=== PATIENT | female | born 1930 | race Caucasian/White ===

== ENCOUNTER 2017-12-02 13:29 | Emergency (ER) | payer MEDICARE, OTHER ==
--- NOTE | 2017-12-02 15:31 | CR ---
Lumbar spine: AP, lateral and cone down lateral views centered to the lumbosacral junction were obtained. Comparison: Prior MRI lumbar spine study of 11/27/10. Scoliosis is noted within the spine. Prior vertebroplasties are seen within L2 and L3. Severe disc space narrowing is noted at L5-S1. Mild spondylolisthesis is noted at L4-L5. Minimal compression deformities are seen within T11 and T12. Age of these are indeterminate. Scoliosis is present. Prominent lateral osteophytes are seen to the right side at L3-L4. Moderate disc space narrowing is noted at L3-L4. Impression: 1. Mild compression deformities involving T11 and T12, age is indeterminate. 2. Compression deformities of L2 and L3 with vertebroplasties. 3. Degenerative change as noted above and osteopenia. Diagnostic code #3
--- NOTE | 2017-12-02 15:33 | CR ---
Pelvis: AP view of the pelvis was obtained. Comparison: No prior pelvis exam. Mild joint space narrowing is noted within both hips. Mild degenerative change is noted within both sacroiliac joints. Bony structures are osteopenic. No acute fracture or other bony abnormality is seen. Impression: 1. Mild degenerative change and osteopenia. 2. Nothing acute is appreciated. Diagnostic code #2
--- NOTE | 2017-12-02 15:38 | EDM.PDOC ---
ED HPI GENERAL MEDICAL PROBLEM - General Chief Complaint: Lower Extremity Injury/Pain Stated Complaint: FALL LAST WEEK-TROUBLE WALKING Time Seen by Provider: 12/02/17 13:48 Source of Information: Reports: Patient, Family () History Limitations: Reports: No Limitations - History of Present Illness INITIAL COMMENTS - FREE TEXT/NARRATIVE: The patient states she fell about a week ago. She does not recall the exact date , but believes it was on or about 11/25/2017. She states that she "just fell" on her buttocks. She denies that she was lightheaded or vertiginous. She states that her legs simply gave out, and she fell straight down. She states that she was unable to get up, therefore 911 was called. The paramedics helped the patient up, but the patient felt no pain, therefore she refused transport. The patient has since developed right flank pain 3 or 4 days ago. The pain radiates from her right buttock down the posterior aspect of her right thigh to her proximal right leg. She feels this pain even when she is supine, but it is made worse with walking. She reports no visible injury. The patient's has been applying Icy Hot to her right flank area, which she states helps with her pain. The patient's mentions that the patient has fallen a lot, causing vertebral compression fractures, status post vertebroplasties. The patient's PCP is Dr. Atkinson. Treatments CIRCULAR KNITTER HELPER: Reports: Other (see below) Other Treatments CIRCULAR KNITTER HELPER: icey hot, tylenol,heating pad Right Hip Pain Score (Numeric/FACES): 9 - Related Data Allergies Allergy/AdvReac Type Severity Reaction Status Date / Time Penicillins Allergy Cannot Verified 07/21/14 14:23 Remember Home Meds: Home Meds Latanoprost 1 ampule TOP BEDTIME 07/10/14 [History] Lisinopril 10 mg PO DAILY 07/10/14 [History] Metoprolol Succinate 50 mg PO DAILY 07/10/14 [History] Timolol [Betimol] 1 ampule TOP DAILY 07/10/14 [History] amLODIPine [Norvasc] 2.5 mg PO DAILY 07/10/14 [History] Aspirin [Halfprin] 81 mg PO DAILY 12/02/17 [History] Past Medical History HEENT History: Reports: Glaucoma Cardiovascular History: Reports: High Cholesterol, Hypertension Genitourinary History: Reports: Urinary Incontinence Musculoskeletal History: Reports: Back Pain, Chronic, Osteoarthritis - Past Surgical History HEENT Surgical History: Reports: Adenoidectomy, Cataract Surgery, Tonsillectomy GI Surgical History: Reports: Appendectomy Neurological Surgical History: Reports: Vertebroplasty (x 2) Musculoskeletal Surgical History: Reports: Knee Replacement (left) Social & Family History - Tobacco Use Smoking Status *Q: Former Smoker Month/Year Tobacco Last Used: Quit 1950 - Caffeine Use Caffeine Use: Reports: Coffee, Tea - Alcohol Use Alcohol Use History: Yes Alcohol Use Frequency: Socially - Recreational Drug Use Recreational Drug Use: No - Living Situation & Occupation Living situation: Reports: , with Spouse Occupation: Retired Review of Systems - Review of Systems Review Of Systems: ROS reveals no pertinent complaints other than HPI. ED EXAM, GENERAL - Physical Exam Exam: See Below Exam Limited By: No Limitations General Appearance: Alert, WD/WN, No Apparent Distress Ears: Normal External Exam, Hearing Grossly Normal Nose: Normal Inspection, No Blood Throat/Mouth: Normal Inspection, Normal Lips, Normal Voice, No Airway Compromise Head: Atraumatic, Normocephalic Neck: Normal Inspection, Full Range of Motion Respiratory/Chest: No Respiratory Distress, Lungs Clear, Normal Breath Sounds, No Accessory Muscle Use Cardiovascular: Normal Peripheral Pulses, Regular Rate, Rhythm, No Edema, No Gallop, No JVD, No Murmur, No Rub Peripheral Pulses: 4+: Radial (L), Radial (R) GI/Abdominal: Normal Bowel Sounds, Soft, Non-Tender, No Organomegaly, No Distention, No Abnormal Bruit, No Mass (Female) Exam: Deferred Rectal (Female) Exam: Deferred Back Exam: Normal Inspection (No visible abnormality to the lumbar or sacral spine, such as erythema, swelling, abrasion, or tenderness. The patient reports minimal tenderness to the right flank area, which is also without visible abnormality. There is minimal tenderness to palpation of the right buttock, and the patient reports tenderness to palpation of the entire right lower extremity , as well.) Extremities: Normal Inspection, Normal Range of Motion, No Pedal Edema, Normal Capillary Refill Neurological: Alert, Oriented, Normal Cognition, Normal Gait, No Motor/Sensory Deficits Psychiatric: Normal Affect Skin Exam: Warm, Dry, Intact, Normal Color, No Rash Course - Vital Signs Last Recorded V/S: Last Vital Signs Temp 37.2 C 12/02/17 13:48 Pulse 82 12/02/17 13:48 Resp 20 12/02/17 13:48 BP 141/82 H 12/02/17 13:48 Pulse Ox 98 12/02/17 13:48 - Re-Assessments/Exams Free Text/Narrative Re-Assessment/Exam: 12/02/17 15:25 3-view radiographs of the lumbar and sacral spine appear to demonstrate osteopenia, arthritic changes, scoliosis, and disc space narrowing. No acute vertebral compression fracture is seen. L2 and L3 have prior vertebroplasties. Formal read per the Radiologist pending. Single view of the pelvis appears to demonstrate osteopenia and advanced arthritic changes to both hips. No acute pelvic or hip fractures are identified. Formal read per the Radiologist pending. 12/02/17 15:41 As the patient has no lumbar pain and no vertebral spinous tenderness, I do not suspect that she has suffered an acute compression fracture. I suspect that the right-sided sciatic pain that she is feeling is due to bruising of the sciatic nerve, suffered when she fell onto her buttocks. It should resolve in time. Departure - Departure Time of Disposition: 15:41 Disposition: Home, Self-Care 01 Condition: Good Clinical Impression: Sciatica of right side - Discharge Information Instructions: Sciatica, [id number] Referrals: Yordy Atkinson MD [Primary Care Provider] - Forms: ED Department Discharge Additional Instructions: You were seen in the emergency room for right flank pain, right buttock pain, and pain going down your right lower extremity, after falling. Workup in the ER included x-rays of your lower spine and pelvis. While you have thin bones and significant arthritis, no acute injuries were found. No new broken bones. We suspect that the pain that you have been experiencing is due to a bruised nerve, not due to a spinous injury. You may continue applying Icy Hot, and can take [id number] Tylenol or ibuprofen as needed for discomfort. Follow-up with your PCP, Dr. Atkinson, as needed. If any other problems, please do not hesitate to return to the ER.
== END 2017-12-02 16:00 | disposition home or self-care (01) ==
LOC: JD.ED 13:29
DX: M54.31 Sciatica, right side (principal); E78.00 Pure hypercholesterolemia, unspecified; I10 Essential (primary) hypertension; Z88.0 Allergy status to penicillin; Z79.899 Other long term (current) drug therapy; Z79.82 Long term (current) use of aspirin; Z90.49 Acquired absence of other specified parts of digestive tract; Z87.891 Personal history of nicotine dependence
CPT/HCPCS: 72100; 72100-26; 72170; 72170-26; 99283

== ENCOUNTER 2018-11-05 08:37 | Emergency (ER) | payer MEDICARE, OTHER ==
--- NOTE | 2018-11-05 09:13 | EDM.PDOC ---
ED HPI GENERAL MEDICAL PROBLEM - General Chief Complaint: Cardiovascular Problem Stated Complaint: NEED MEDICATION FOR A FIB Time Seen by Provider: 11/05/18 09:07 Source of Information: Reports: Patient History Limitations: Reports: No Limitations - History of Present Illness INITIAL COMMENTS - FREE TEXT/NARRATIVE: 88 yo F sent over from [facility] today with for being in Afib w/ RVR (>160bpm) during her ECHO this AM. She is currently stable w/ HR generally in the 80s and 90s. She was just seen at the [facility] walk-in [facility] yesterday for swollen legs and was diagnosed with Afib and started on Xaralto. She is already on Metoprolol 50mg Daily. DVT was ruled out yesterday via U/S, and she was scheduled for an ECHO this AM at [facility]. She currently has no symptoms- denies NICHOLS, CP, Palpitations, SOB. No other concerns at this time. Her PCP is Dr. Atkinson/Carlos. Currently out of town so she saw Dr. Elena. - Related Data Allergies Allergy/AdvReac Type Severity Reaction Status Date / Time Penicillins Allergy Cannot Verified 07/21/14 14:23 Remember Home Meds: Home Meds Latanoprost 1 drop EYEBOTH BEDTIME 07/10/14 [History] Lisinopril 10 mg PO DAILY 07/10/14 [History] Metoprolol Succinate 50 mg PO DAILY 07/10/14 [History] Timolol [Betimol] 1 drop EYEBOTH DAILY 07/10/14 [History] amLODIPine [Norvasc] 2.5 mg PO DAILY 07/10/14 [History] Aspirin [Halfprin] 81 mg PO DAILY 12/02/17 [History] Furosemide 10 mg PO DAILY 11/05/18 [History] Rivaroxaban [Xarelto] 2.5 mg PO DAILY 11/05/18 [History] Rosuvastatin Calcium 10 mg PO DAILY 11/05/18 [History] Past Medical History HEENT History: Reports: Glaucoma Cardiovascular History: Reports: High Cholesterol, Hypertension Respiratory History: Reports: Bronchitis, Recurrent Genitourinary History: Reports: Urinary Incontinence Musculoskeletal History: Reports: Back Pain, Chronic, Osteoarthritis Other Musculoskeletal History: back surgery - Past Surgical History HEENT Surgical History: Reports: Adenoidectomy, Cataract Surgery, Tonsillectomy GI Surgical History: Reports: Appendectomy Neurological Surgical History: Reports: Vertebroplasty (x 2) Musculoskeletal Surgical History: Reports: Knee Replacement (left) Social & Family History - Caffeine Use Caffeine Use: Reports: Coffee, Tea - Living Situation & Occupation Living situation: Reports: , with Spouse Occupation: Retired ED ROS GENERAL - Review of Systems Review Of Systems: ROS reveals no pertinent complaints other than HPI. ED EXAM, GENERAL - Physical Exam Exam: See Below Exam Limited By: No Limitations General Appearance: Alert, WD/WN, No Apparent Distress Eye Exam: Bilateral Eye: EOMI, Normal Inspection, PERRL Ears: Other (BISHOP PAIUTE) Nose: Normal Inspection Throat/Mouth: Normal Inspection Respiratory/Chest: No Respiratory Distress, Lungs Clear, Normal Breath Sounds, No Accessory Muscle Use, Chest Non-Tender Cardiovascular: Normal Peripheral Pulses, No Gallop, No JVD, No Murmur, No Rub, Irregularly Irregular. No: Regular Rate, Rhythm GI/Abdominal: Normal Bowel Sounds, Soft, Non-Tender, No Organomegaly, No Distention, No Abnormal Bruit, No Mass Neurological: Alert, Oriented, CN II-XII Intact, Normal Cognition, Normal Gait, Normal Reflexes, No Motor/Sensory Deficits Psychiatric: Normal Affect, Normal Mood Skin Exam: Warm, Dry, Intact, Normal Color, No Rash EKG INTERPRETATION EKG Date: 11/05/18 Time: 08:54 Rhythm: A-Fib Rate (Beats/Min): 91 [place]: LAD-Left [place] Deviation P-Wave: Absent QRS: Normal ST-T: Normal QT: Prolonged (mild) EKG Interpretation Comments: Afib w/ rate 62-135, Early R wave transition, Septal hypertrophy, LAD (- 24degrees), QTc mildly prolonged Course - Vital Signs Last Recorded V/S: Last Vital Signs Temp 99.0 F 11/05/18 08:50 Pulse 97 11/05/18 08:50 Resp 24 H 11/05/18 08:50 BP 106/76 11/05/18 08:50 Pulse Ox 98 11/05/18 08:50 - Orders/Labs/Meds Orders: Active Orders 24 hr Category Date Time Status EKG 12 Lead [EKG Documentation Completion] [RC] STAT Care 11/05/18 08:50 Active - Re-Assessments/Exams Free Text/Narrative Re-Assessment/Exam: 11/05/18 09:[address] Elena at [facility]- she clarified why she was sent over, as she was in Afib w/RVR her HR was >160 during the ECHO. She then said she can follow up with her PCP Dr. Atkinson on her previously scheduled appointment on November 12 and he can reschedule the ECHO then. 11/05/18 09:43 Had her walk around the room to monitor her HR, she was around 110 with activity. At this time, she seems to be well-controlled and no intervention is indicated at this time. She is stable enough to go home. She is to follow up with her PCP on November 12 and can reschedule the ECHO then. Departure - Departure Time of Disposition: 09:44 Disposition: Home, Self-Care 01 Condition: Good Clinical Impression: Afib Instructions: Atrial Fibrillation, [id number] Referrals: Yordy Atkinson MD [Primary Care Provider] - Forms: ED Department Discharge Additional Instructions: You were seen in the ED today for Atrial Fibrillation with rapid heart rate during your ECHO today at [facility]. Your EKG and heart rate here are well- controlled and showed no sign of rapid rate. You have no other symptoms at this time. Therefore, you are stable enough to go home. Recommend continuing your previously prescribed Metoprolol and Xarelto. Recommend keeping your follow up appointment with Dr. Atkinson on November 12 and you can reschedule your ECHO then. Please return to ED if new or worsening symptoms. - My Orders Last 24 Hours: My Active Orders 11/05/18 08:50 EKG 12 Lead [EKG Documentation Completion] [RC] STAT - Assessment/Plan Last 24 Hours: My Active Orders 11/05/18 08:50 EKG 12 Lead [EKG Documentation Completion] [RC] STAT
== END 2018-11-05 10:05 | disposition home or self-care (01) ==
LOC: JD.ED 08:37
DX: I48.91 Unspecified atrial fibrillation (principal); E78.00 Pure hypercholesterolemia, unspecified; I10 Essential (primary) hypertension; Z79.82 Long term (current) use of aspirin; Z79.899 Other long term (current) drug therapy; Z88.0 Allergy status to penicillin; Z79.01 Long term (current) use of anticoagulants
CPT/HCPCS: 93005; 93010; 99283; 99284-25